=== PATIENT | female | born 1945 | race Caucasian/White ===

== ENCOUNTER 2018-05-23 07:55 | Day surgery (SDC) | payer BC ==
[2018-05-17 18:05] VITALS: BMI 22.2
[2018-05-23] MEDS ORDERED: PROPOFOL 20 ML ONE (08:02)
[2018-05-23] MEDS ORDERED: LIDOCAINE HCL/PF 2% SDV 5ML VIAL ONE (08:33)
[2018-05-23 11:12] VITALS: TEMP 97.6
[2018-05-23 11:21] VITALS: BP 142/76; PULSE 94
--- NOTE | 2018-05-24 14:52 | PATH ---
Surgical Pathology Report Patient Name: RONNY MORALES [facility]. Rec. #: [id number] /Age/Gender: 1945 (Age: 72) / F Account: [id number] Location: [facility] Taken: 05/23/2018 Received: 05/23/2018 Reported: 05/24/2018 Physicians: Lc Abarca M.D. Specimen(s) Received A: BX DUODENUM B: BX ANTRUM C: BX ESOPHAGUS Clinical History GERD Postoperative diagnosis: Rule out celiac disease, gastritis, dysphagia Final Diagnosis A. Duodenum, biopsy: Small bowel mucosa withOUT SIGNIFICANT PATHOLOGIC findings. B. Stomach, antrum, biopsy: Gastric ANTRAL mucosa with mild chronic active gastritis. Immunohistochemical stain for H. Pylori is negative. C. Esophagus, biopsy: Squamous MUCOSA WITHOUT SIGNIFICANT pathologic findings. Electronically Signed Phuong Buck M.D. Gross Description A. Received in formalin, labeled "duodenum" are 2 west, irregular portions of soft tissue averaging 0.4 cm. in greatest dimension. The specimens are submitted in toto in one cassette. B. Received in formalin, labeled "antrum" are 2 west, irregular portions of soft tissue measuring 0.4 and 0.5 cm. in greatest dimension. The specimens are submitted in toto in one cassette. C. Received in formalin, labeled "esophagus" are 3 west, irregular portions of soft tissue ranging from 0.3-0.6 cm. in greatest dimension. The specimens are submitted in toto in one cassette. DL/05/23/2018 saudi/05/23/2018
== END 2018-05-23 10:05 | disposition home or self-care (01) ==
LOC: FASU-ENDO 07:55
PROVIDERS: ATTEND Internal Medicine Gastroenterology
PROC: 0DB58ZX Excision of Esophagus, Via Natural or Artificial Opening Endoscopic, Diagnostic (ICD-10-PCS; 2018-05-23)
PROC: 0D748DZ Dilation of Esophagogastric Junction with Intraluminal Device, Via Natural or Artificial Opening Endoscopic (ICD-10-PCS; 2018-05-23)
PROC: 0DB98ZX Excision of Duodenum, Via Natural or Artificial Opening Endoscopic, Diagnostic (ICD-10-PCS; principal; 2018-05-23 09:11)
PROC: 0DB68ZX Excision of Stomach, Via Natural or Artificial Opening Endoscopic, Diagnostic (ICD-10-PCS; 2018-05-23 09:11)
DX: Z13.810 Encounter for screening for upper gastrointestinal disorder (principal); K29.50 Unspecified chronic gastritis without bleeding; K44.9 Diaphragmatic hernia without obstruction or gangrene
CPT/HCPCS: 88305-TC; 88342-TC

== ENCOUNTER 2020-06-21 09:05 | Day surgery (SDC) | payer BC ==
[2020-06-17 13:13] VITALS: BMI 22.6
[2020-06-21 13:22] VITALS: BP 128/65; PULSE 78; TEMP 97.8
== END 2020-06-21 11:30 | disposition home or self-care (01) ==
LOC: FASU-ENDO 09:05
PROVIDERS: ATTEND Internal Medicine Gastroenterology
PROC: 0DBL8ZX Excision of Transverse Colon, Via Natural or Artificial Opening Endoscopic, Diagnostic (ICD-10-PCS; 2020-06-21)
PROC: 0DBL8ZX Excision of Transverse Colon, Via Natural or Artificial Opening Endoscopic, Diagnostic (ICD-10-PCS; principal; 2020-06-21 10:20)
DX: Z09 Encounter for follow-up examination after completed treatment for conditions other than malignant neoplasm (principal); Z86.010 Personal history of colon polyps; D12.3 Benign neoplasm of transverse colon; K57.30 Diverticulosis of large intestine without perforation or abscess without bleeding; K64.8 Other hemorrhoids
CPT/HCPCS: 88305-TC

== ENCOUNTER 2023-05-21 08:49 | Day surgery (SDC) | payer OTHER ==
[2023-05-17 14:23] VITALS: BMI 22.6
[2023-05-21] MEDS ORDERED: PROPOFOL 160 ML ONE (10:37)
[2023-05-21 11:16] VITALS: RESP 16; TEMP 96.5
[2023-05-21 11:29] VITALS: BP 152/77; PULSE 75
== END 2023-05-21 11:40 | disposition home or self-care (01) ==
LOC: FASU-ENDO 08:49
PROVIDERS: ATTEND Internal Medicine Gastroenterology
PROC: 0DBL8ZX Excision of Transverse Colon, Via Natural or Artificial Opening Endoscopic, Diagnostic (ICD-10-PCS; 2023-05-21)
PROC: 0DBN8ZX Excision of Sigmoid Colon, Via Natural or Artificial Opening Endoscopic, Diagnostic (ICD-10-PCS; 2023-05-21)
PROC: 0DBH8ZX Excision of Cecum, Via Natural or Artificial Opening Endoscopic, Diagnostic (ICD-10-PCS; principal; 2023-05-21 10:15)
DX: Z12.11 Encounter for screening for malignant neoplasm of colon (principal); D12.0 Benign neoplasm of cecum; D12.2 Benign neoplasm of ascending colon; D12.3 Benign neoplasm of transverse colon; D12.5 Benign neoplasm of sigmoid colon; K57.30 Diverticulosis of large intestine without perforation or abscess without bleeding; Z86.010 Personal history of colon polyps
CPT/HCPCS: 88305-TC